=== PATIENT | female | born 1995 | race African-American/Black ===

== ENCOUNTER 2019-12-12 09:02 | Emergency (ER) | payer OTHER ==
[2019-12-12] MEDS ORDERED: ACETAMINOPHEN 325 MG TABLET PO ONE (09:21)
--- NOTE | 2019-12-12 09:26 | ER Document Report ---
ED ENT - General Chief Complaint: Sore Throat Stated Complaint: SORE THROAT/BODY ACHES Time Seen by Provider: 12/12/19 09:08 Primary Care Provider: [facility] [Provider Group] - Follow up as needed Mode of Arrival: Ambulatory Information source: Patient Notes: 24-year-old female past medical history significant for mono presents to the emergency room complaining of a sore throat that started yesterday. Started with body aches last night. States throat was more painful today. Able to swallow but states is painful. No medications today for symptoms. No known fever. Denies any recent travel. Denies any COVID-19 exposure. No known ill contacts. Denies . TRAVEL OUTSIDE OF THE [place] IN LAST 30 DAYS: No - Related Data Allergies/Adverse Reactions: No Known Allergies Allergy (Verified 12/12/19 10:10) Past Medical History - General Information source: Patient - Social History Smoking Status: Never Smoker Frequency of alcohol use: Occasional Drug Abuse: None Family History: Reviewed & Not Pertinent Review of Systems - Review of Systems Constitutional: No symptoms reported EENT: Throat pain Cardiovascular: No symptoms reported Respiratory: No symptoms reported Gastrointestinal: denies: Nausea, Vomiting Musculoskeletal: Muscle pain Skin: No symptoms reported Neurological/Psychological: No symptoms reported -: Yes All other systems reviewed and negative Physical Exam - Vital signs Vitals: Temp Pulse Resp BP Pulse Ox 100.8 F H 125 H 18 144/79 H 97 12/12/19 09:08 12/12/19 09:08 12/12/19 09:08 12/12/19 09:08 12/12/19 09:08 - Notes Notes: VITAL SIGNS: Within normal limits. GENERAL: Mild acute distress, non-toxic appearance. HEAD: Normal with no signs of head trauma. EYES: PERRLA, EOMI, conjunctiva normal, no discharge. EARS: Hearing grossly intact. Tympanic membranes intact bilaterally without any erythema or bulging. Bilateral outer nails without erythema or swelling. NOSE: Normal. Turbinates are not erythematous, clear discharge is noted. Sinuses are nontender to palpation. THROAT: Oropharynx is normal. Positive for posterior pharyngeal erythema, with white exudate. Positive for bilateral tonsillar enlargement NECK: Normal range of motion, no tenderness, supple, no lymphadenopathy, No adenopathy, no JVD. Negative Meningismus, Negative brudzzinski, Negative Kernig's CHEST: Clear breath sounds bilaterally. No wheezes, rales, or rhonchi. CARDIAC: Tachycardic. S1 and S2, without murmurs, gallops, or rubs. VASCULAR: No Edema. Peripheral pulses normal and equal in all extremities. ABDOMEN: Normal and soft with no tenderness, no masses or pulsatile masses. GASTROINTESTINAL: Bowel sounds normal GENITOURINARY: Normal, No tenderness LYMPATHTIC: No lymphadenopathy noted. MUSCULOSKELETAL: Good range of motion of all major joints. Extremities without clubbing, cyanosis or edema. NEUROLOGICAL: Alert and oriented x 3. No focal sensory or strength deficits. Speech normal. Follows commands appropriately. PSYCHIATRIC: Normal Affect, judgement and mood. SKIN: Normal appearance with no rashes or lesions. Course - Re-evaluation Re-evalutation: 12/12/19 10:27 Patient with a negative rapid strep, will check flu, afebrile, nontoxic- appearing, able to tolerate p.o. fluids. 12/12/19 10:52 Reviewed negative strep and negative flu results with patient. She is afebrile, nontoxic-appearing, able to tolerate p.o. fluids. Will treat based on clinical presentation. Counseled on viral versus bacterial infection. She was counseled to follow-up outpatient with her primary care physician in 2 to 3 days if not improving. She was also aware that she will be notified if her throat culture is positive but she will already be on antibiotics. Push fluids, Tylenol and or Motrin as needed for fever and body aches. Patient was given strict return to the emergency room guidelines. Return for any new or worsening symptoms. All questions were answered. Patient verbalized understanding and agrees with plan of care. 12/12/19 10:53 12/12/19 11:06 - Vital Signs Vital signs: Temp Pulse Resp BP Pulse Ox 99.3 F 93 18 122/74 99 12/12/19 10:26 12/12/19 10:26 12/12/19 10:26 12/12/19 10:26 12/12/19 10:26 Discharge - Discharge Clinical Impression: Sore throat, Generalized body aches Fever Qualifiers: Fever type: unspecified Qualified Code(s): R50.9 - Fever, unspecified Condition: Stable Disposition: HOME, SELF-CARE Instructions: Fever ([facility]), Sore Throat ([facility]) Additional Instructions: Push fluids, Tylenol and or Motrin as needed for pain. Antibiotics as prescribed. Follow-up with primary care physician if not improving in 2 to 3 days. Return to the emergency room for any new or worsening symptoms. Prescriptions: Amoxicillin 1 tab PO TID #30 tab Referrals: [facility] [Provider Group] - Follow up as needed
[2019-12-12 10:27] VITALS: BP 122/74
[2019-12-12 10:42] LABS: A TYPE INFLUENZA AG NEGATIVE (NEGATIVE); B INFLUENZA AG NEGATIVE (NEGATIVE)
== END 2019-12-12 11:30 | disposition home or self-care (01) ==
LOC: ER 09:02
DX: J02.9 Acute pharyngitis, unspecified (principal); M79.10 Myalgia, unspecified site; R50.9 Fever, unspecified
CPT/HCPCS: 87070; 87804; 87880; 99283